=== PATIENT | male | born 1990 | race Caucasian/White ===

== ENCOUNTER 2017-12-15 11:15 | Emergency (ER) | payer BC, OTHER ==
[2017-12-15 11:46] VITALS: BP 119/74; PULSE 73; TEMP 98.9; BMI 33.4
[2017-12-15] MEDS ORDERED: DIPHTH,PERTUSS(ACELL),TET 0.5 ML DISP.SYRIN IM ONE (12:39)
--- NOTE | 2017-12-15 12:44 | PDOC ---
History of Present Illness - General Chief Complaint: Laceration Stated Complaint: LACERATION Time Seen by Provider: 12/15/17 12:04 - History of Present Illness Initial Comments: 27-year-old male presents for evaluation of a laceration on his left forearm. He states he tripped and fell and cut his forearm on a fish tank. He is unsure of his tetanus status. He has no comorbidities. 12/15/17 12:40 Past History - Past Medical History Allergies/Adverse Reactions: Allergies Allergy/AdvReac Type Severity Reaction Status Date / Time No Known Allergies Allergy Verified 12/15/17 11:44 Home Medications: Ambulatory Orders NK [No Known Home Medication] 12/15/17 COPD: No - Surgical History Cardiac Surgery: Yes (ablation s/p wpws) - Immunization History Immunization Up to Date: Yes - Suicide/Smoking/Psychosocial Hx Smoking History: Never smoked Have you smoked in the past 12 months: No Hx Alcohol Use: No Drug/Substance Use Hx: No Substance Use Type: None *Physical Exam - Vital Signs Last Vital Signs Temp Pulse Resp BP Pulse Ox 98.9 F 73 18 119/74 99 12/15/17 11:44 12/15/17 11:44 12/15/17 11:44 12/15/17 11:44 12/15/17 11:44 - Physical Exam Comments: There is a V shaped laceration on the volar aspect of his distal forearm on the radial side. Exposing subcutaneous fat. The laceration is about 3 cm total. There are no gross sensorimotor deficits tendon function is intact distally. He is neurovascularly intact. 12/15/17 12:40 ED Treatment Course - RADIOLOGY Radiology Studies Ordered: Category Date Time Status WRIST W/HAND-RIGHT* [RAD] Stat Radiology 12/15/17 12:07 Taken Medical Decision Making - Medical Decision Making X-rays were reviewed. There are no radial opaque foreign bodies. The laceration was anesthetized with 8 mL of 1% lidocaine without epinephrine. The wound was explored to its base in a bloodless field. No foreign body was identified. Copiously irrigated. The laceration edges were approximated with 6 4 -0 nylon sutures in a simple interrupted fashion. A dry sterile dressing was placed. This was tolerated well. 12/15/17 12:41 *DC/Admit/Observation/Transfer Diagnosis at time of Disposition: Laceration of forearm, right - Discharge Dispostion Disposition: HOME Condition at time of disposition: Stable Decision to Admit order: No - Referrals Referrals: Davy Santo MD [Staff Physician] - - Patient Instructions Printed Discharge Instructions: DI for Laceration Repair Additional Instructions: Keep the dressing on for the next 48 hours. After which you may remove the dressing and wash the area with soap and water and leave it open to air. You only need to cover the dressing if you are working. Otherwise leave it open to air. Return to the emergency room should you experience any drainage swelling redness or pain about the area. Otherwise he may return to the emergency room in 10 days for suture removal or follow-up with hand surgery for further evaluation and treatment options as well as suture removal. He should follow-up with hand surgery in 1-2 days for wound management. Your tetanus was updated today as well. - Post Discharge Activity
== END 2017-12-15 12:48 | disposition home or self-care (01) ==
LOC: JERFT 11:15
PROC: 0HQDXZZ Repair Right Lower Arm Skin, External Approach (ICD-10-PCS; principal; 2017-12-15)
DX: S51.812A Laceration without foreign body of left forearm, initial encounter (principal); W45.8XXA Other foreign body or object entering through skin, initial encounter; Y93.89 Activity, other specified; Y92.89 Other specified places as the place of occurrence of the external cause
CPT/HCPCS: 73110-TC-RT-FY; 73130-TC-RT-FY; 90715; 99282-25

== ENCOUNTER 2019-02-10 22:45 | Inpatient (IN) | payer OTHER ==
--- NOTE | 2019-02-10 22:58 | PDOC ---
History of Present Illness - General Chief Complaint: Hemoptysis Stated Complaint: HEMOPTYSIS Time Seen by Provider: 02/10/19 22:58 Past History - Past Medical History Allergies/Adverse Reactions: Allergies Allergy/AdvReac Type Severity Reaction Status Date / Time No Known Allergies Allergy Verified 02/10/19 22:50 Home Medications: Ambulatory Orders NK [No Known Home Medication] 12/15/17 COPD: No - Surgical History Cardiac Surgery: Yes (ablation s/p wpws) - Immunization History Immunization Up to Date: Yes - Psycho Social/Smoking Cessation Hx Smoking History: Never smoked Have you smoked in the past 12 months: No Hx Alcohol Use: No Drug/Substance Use Hx: No Substance Use Type: None *Physical Exam - Vital Signs Last Vital Signs Temp Pulse Resp BP Pulse Ox 98.1 F 80 18 133/87 96 02/10/19 22:48 02/10/19 22:48 02/10/19 22:48 02/10/19 22:48 02/10/19 22:48
--- NOTE | 2019-02-10 23:51 | PDOC ---
History of Present Illness - General Chief Complaint: Hemoptysis Stated Complaint: HEMOPTYSIS Time Seen by Provider: 02/10/19 22:58 - History of Present Illness Initial Comments: 02/10/19 23:43 HPI: 28 y/o M with hx of PFO s/p indomethacin as a child presenting with hemoptysis that started today. He states he woke up this morning with a scratchy throat and when he coughed to clear the phlegm, he noted that it was largely bright red blood. He denies any prior episodes. He stated continued hemoptysis throughout the day and now feeling wheezing. He denies any fever, chills, chest pain, SOB, fatigue, malaise, abd pain, n/v, travel, sick contacts, [facility] contact, [facility] living. Of note, he does report having 2 wisdom teeth pulled out 5 days ago and has been taking amoxicillin and tylenol 3, but he tolerated procedure well. PMHx: as noted above ROS: as noted SHx: Denies tobacco use; no alcohol use; no rec drugs Allergies: NKDA ROS: GENERAL/CONSTITUTIONAL: No fever or chills. No weakness. HEAD, EYES, EARS, NOSE AND THROAT: No change in vision. No ear pain or discharge. +sore throat. CARDIOVASCULAR: No chest pain or shortness of breath RESPIRATORY: +wheezing and hemoptysis. GASTROINTESTINAL: No nausea, vomiting, diarrhea or constipation. GENITOURINARY: No dysuria, frequency, or change in urination. MUSCULOSKELETAL: No joint or muscle swelling or pain. No neck or back pain. SKIN: No rash NEUROLOGIC: No headache, vertigo, loss of consciousness, or change in strength/ sensation. ENDOCRINE: No increased thirst. No abnormal weight change HEMATOLOGIC/LYMPHATIC: No anemia, easy bleeding, or history of blood clots. ALLERGIC/IMMUNOLOGIC: No hives or skin allergy. PE: GENERAL: Awake, alert, and fully oriented, no acute distress HEAD: No signs of trauma, normocephalic, atraumatic EYES: EOMI, sclera anicteric, conjunctiva clear ENT: Auricles normal inspection, hearing grossly normal, nares patent, oropharynx clear without exudates or blood. Moist mucosa NECK: Normal ROM, no lymphadenopathy LUNGS: No increased work of breathing, symmetrical chest rise, inspiratory wheezing noted throughout all lung wolff BL HEART: Regular rate and rhythm, normal S1 and S2, no murmurs, peripheral pulses 2+ and equal bilaterally. ABDOMEN: Soft, nondistended, nontender, normoactive bowel sounds. No guarding, no rebound. No masses. No CVAT EXTREMITIES: Normal inspection, Normal range of motion, no edema. No clubbing or cyanosis. NEUROLOGICAL: Cranial nerves II through XII grossly intact. Normal speech, normal gait, no focal sensorimotor deficits SKIN: Warm, Dry, normal turgor, no rashes or lesions noted Past History - Past Medical History Allergies/Adverse Reactions: Allergies Allergy/AdvReac Type Severity Reaction Status Date / Time No Known Allergies Allergy Verified 02/10/19 22:50 Home Medications: Ambulatory Orders Acetaminophen W/ Codeine #3 [Tylenol # 3 -] 1 - 2 tab PO Q6H PRN 02/10/19 Amoxicillin - [Amoxicillin 500mg Capsule -] 500 mg PO Q8H 02/10/19 COPD: No - Surgical History Cardiac Surgery: Yes (ablation s/p wpws) - Immunization History Immunization Up to Date: Yes - Psycho Social/Smoking Cessation Hx Smoking History: Never smoked Have you smoked in the past 12 months: No Hx Alcohol Use: No Drug/Substance Use Hx: No Substance Use Type: None *Physical Exam - Vital Signs Last Vital Signs Temp Pulse Resp BP Pulse Ox 98.1 F 80 18 133/87 96 02/10/19 22:48 02/10/19 22:48 02/10/19 22:48 02/10/19 22:48 02/10/19 22:48 ED Treatment Course - RADIOLOGY Radiology Studies Ordered: Category Date Time Status CHEST PA & LAT [RAD] Stat Radiology 02/10/19 23:29 Ordered Medical Decision Making - Medical Decision Making 02/10/19 23:51 28 y/o M with hx of PFO s/p indomethacin as a child presenting with hemoptysis ( bright red blood) that started today associated with sore throat and wheezing. VSS, AF. PE notable for wheezing throughout all lung wolff. Broad differential including PNA, bronchitis, AVM, tracheal injury, malignancy, TB. Patient has no risk factors for TB. Will proceed with workup -cbc, cmp, coags, trop, bnp, ekg, cxr 02/10/19 23:54 signed out to night team to followup imaging and labs Discharge - Discharge Information Problems reviewed: Yes Clinical Impression/Diagnosis: Hemoptysis, unspecified - Follow up/Referral - Patient Discharge Instructions - Post Discharge Activity
[2019-02-11] MEDS ORDERED: ALBUTEROL SO4 2.5/IPRATROPIUM 0.5 INH SOL 3 ML VIAL.NEB. NEB ONE ×2 (00:01→00:27)
--- NOTE | 2019-02-11 00:07 | PDOC ---
*Physical Exam - Vital Signs Last Vital Signs Temp Pulse Resp BP Pulse Ox 98.1 F 80 18 133/87 96 02/10/19 22:48 02/10/19 22:48 02/10/19 22:48 02/10/19 22:48 02/10/19 22:48 ED Treatment Course - LABORATORY CBC & Chemistry Diagram: 02/11/19 00:14 02/11/19 00:14 Medical Decision Making - Medical Decision Making 02/11/19 00:01 28 y/o M no significant medical hx presenting with hemoptysis no fevers, chills or p.e risk factors. no TB risk factors (recent travel) follow up on labs and ekg 02/11/19 00:02 02/11/19 00:11 EKG: normal sinus rhythm normal EKG 02/11/19 01:31 d-dimer elevated at 690 wheezing improved after duoneb treatment x1 -CTA ordered. 02/11/19 04:06 Chest CTA Moderate left lower lobe lung consolidation most likely due to pneumonia or aspiration pneumonia or consolidation from hemorrhage. If clinically indicated follow-up evaluation may be needed. Opacification of the left lower lobe bronchi may be due to aspirated debris or mucus. Left infrahilar borderline nonspecific lymphadenopathy may be reactive to infection. microblog sent for admission 02/11/19 04:08 Discharge - Discharge Information Problems reviewed: Yes Clinical Impression/Diagnosis: Hemoptysis, unspecified Condition: Improved Disposition: HOME - Follow up/Referral - Patient Discharge Instructions - Post Discharge Activity
--- NOTE | 2019-02-11 00:15 | PDOC ---
Documentation entered by Vinicio Kim SCRIBE, acting as scribe for Charlette Delong MD. Charlette Delong MD: This documentation has been prepared by the Judy cedeño Nirvannie, SCRIBE, under my direction and personally reviewed by me in its entirety. I confirm that the documentation accurately reflects all work, treatment, procedures, and medical decision making performed by me. Attending Attestation - Resident Resident Name: BrendenArian macario - ED Attending Attestation I have performed the following: I have examined & evaluated the patient, The case was reviewed & discussed with the resident, I agree w/resident's findings & plan - HPI HPI: 02/11/19 00:14 28 y/o M with hx of PFO s/p indomethacin as a child presenting with hemoptysis that started today. He states he woke up this morning with a scratchy throat and when he coughed to clear the phlegm, he noted that it was largely bright red blood. He denies any prior episodes. He stated continued hemoptysis throughout the day and now feeling wheezing. He denies any fever, chills, chest pain, SOB, fatigue, malaise, abd pain, n/v, travel, sick contacts, residential contact, skilled nursing living. Of note, he does report having 2 wisdom teeth pulled out 5 days ago and has been taking amoxicillin and tylenol 3, but he tolerated procedure well. - Physicial Exam PE: 02/10/19 23:02 NAD, well appearing, EOMI, PERRL, MMM, nl conjunctiva, anicteric; neck supple. lungs with wheezing, RRR, abdomen soft nontender. Back nontender. ENRIQUEZ x4, no focal neuro deficits. No peripheral edema. normal color for ethnicity, WWP. 02/11/19 01:03 - Medical Decision Making 02/11/19 00:14 Vital Signs Temp Pulse Resp BP Pulse Ox 98.1 F 80 18 133/87 96 02/10/19 22:48 02/10/19 22:48 02/10/19 22:48 02/10/19 22:48 02/10/19 22:48 02/11/19 00:14 ddx includes pna, mass, malignancy, obstruction, PE, arrhythmia, viral syndrome , bronchitis, bronchiectasis. labs, unremarkable. dimer, well score 1.5 for hemoptysis, cannot perc out with the hemoptysis. trop/bnp ekg sinus rhythm duoneb for wheezing. dimer positive for patient at 690 will need CTA to eval for PE. 02/11/19 01:03 02/11/19 01:30 Heart Score/ECG Review #1 ECG reviewed & interpreted by me at: 00:05 General ECG Interpretation: Sinus Rhythm, Normal Rate, Normal Intervals 02/11/19 00:14 nsr at 86 bpm
[2019-02-11 00:31] LABS: BASO % 0.5 % (0-2.0); EOS % 2.3 % (0-4.5); HEMATOCRIT 40.1 % (35.4-49); HEMOGLOBIN 13.8 GM/dL (11.7-16.9); LYMPH % 38.3 % (8-40); MCH 30.6 pg (25.7-33.7); MCHC 34.4 g/dl (32.0-35.9); MEAN CELL VOLUME 88.8 fl (80-96); MEAN PLT VOLUME 8.9 fl (7.5-11.1); MONO % 7.6 % (3.8-10.2); NEUT % 51.3 % (42.8-82.8); PLATELET COUNT 181 K/MM3 (134-434); RBC 4.52 M/mm3 (4.00-5.60); RDW 13.3 % (11.9-15.9); WHITE BLOOD COUNT 8.2 K/mm3 (4.0-10.0)
[2019-02-11 00:43] LABS: INR 1.08 (0.83-1.09); PROTHROMBIN TIME (PATIENT) 12.7 SEC (9.7-13.0)
[2019-02-11 00:46] LABS: ACTIVATED PTT 35.8 SECONDS (25.2-36.5)
[2019-02-11 01:00] LABS: ALBUMIN 3.7 g/dl (3.4-5.0); BILIRUBIN,TOTAL 0.4 mg/dL (0.2-1); CREATININE 0.7 mg/dL (0.55-1.3); TOT PROT 7.4 g/dl (6.4-8.2)
[2019-02-11 01:02] LABS: N-TERMINAL BNP 12.9 pg/ml (5-125)
[2019-02-11] MEDS ORDERED: AMPICILLIN NA/SULBACTAM NA 1.5 GM in SODIUM CHLORIDE 100 ML IVPB ONE (03:52)
--- NOTE | 2019-02-11 04:08 | PDOC ---
*Physical Exam - Vital Signs Last Vital Signs Temp Pulse Resp BP Pulse Ox 98.1 F 80 18 133/87 96 02/10/19 22:48 02/10/19 22:48 02/10/19 22:48 02/10/19 22:48 02/10/19 22:48 ED Treatment Course - LABORATORY CBC & Chemistry Diagram: 02/11/19 00:14 02/11/19 00:14 - ADDITIONAL ORDERS Additional order review: Laboratory Results 02/11/19 02/11/19 02/11/19 00:14 00:14 00:14 PT with INR 12.70 INR 1.08 PTT (Actin FS) 35.8 D-Dimer 690 H Sodium Potassium Chloride Carbon Dioxide Anion Gap BUN Creatinine Est GFR (CKD-EPI)AfAm Est GFR (CKD-EPI)NonAf Random Glucose Calcium Total Bilirubin AST ALT Alkaline Phosphatase Troponin I < 0.02 B-Natriuretic Peptide 12.9 Total Protein Albumin 02/11/19 00:14 PT with INR INR PTT (Actin FS) D-Dimer Sodium 140 Potassium 4.0 Chloride 108 H Carbon Dioxide 29 Anion Gap 4 L BUN 11.0 Creatinine 0.7 Est GFR (CKD-EPI)AfAm 146.77 Est GFR (CKD-EPI)NonAf 126.64 Random Glucose 101 Calcium 9.0 Total Bilirubin 0.4 AST 26 ALT 62 H Alkaline Phosphatase 116 Troponin I B-Natriuretic Peptide Total Protein 7.4 Albumin 3.7 02/11/19 00:14 RBC 4.52 MCV 88.8 MCHC 34.4 RDW 13.3 MPV 8.9 Neutrophils % 51.3 Lymphocytes % 38.3 D Monocytes % 7.6 Eosinophils % 2.3 Basophils % 0.5 - Medications Given in the ED: ED Medications Discontinued Medications Generic Name Dose Route Start Last Admin Trade Name Freq PRN Reason Stop Dose Admin Albuterol/Ipratropium 1 amp 02/11/19 00:01 02/11/19 00:31 Duoneb - NEB 02/11/19 00:02 1 amp ONCE ONE Administration Medical Decision Making - Medical Decision Making Pt received on signout. 02/11/19 04:06 Patient Name: GAGE HERNANDEZ THIS IS A PRELIMINARY REPORT FROM [facility] DATE OF SERVICE: 2019-02-11 02:11:17 IMAGES: 1142 EXAM: CT ANGIOGRAM CHEST WITH CONTRAST AND 3-D ANGIOGRAPHIC RECONSTRUCTIONS HISTORY: 28-Year-Old Male With Hemoptysis. COMPARISON: None. TECHNIQUE: Following 70.7 mL Omnipaque 350 IV contrast administration thin axial images were obtained through the chest for pulmonary artery evaluation by pulmonary embolism protocol with images transmitted to a remote workstation for 3-D post-processing included coronal and sagittal reformatted 3-D MIP images which were permanently stored in the patient medical record PACS. FINDINGS: Moderate left lower lobe lung consolidation most likely due to pneumonia or aspiration pneumonia or consolidation from hemorrhage. Opacification of the left lower lobe bronchi may be due to aspirated debris or mucus. Left infrahilar borderline nonspecific lymphadenopathy may be reactive to infection. Mild basilar atelectasis. No pleural effusion. No pneumothorax. Heart appears unremarkable. No large central pulmonary embolism. Evaluation of the distal segmental branches is limited by artifact. Limited evaluation upper abdomen appears unremarkable. Bones appear unremarkable. IMPRESSION: Moderate left lower lobe lung consolidation most likely due to pneumonia or aspiration pneumonia or consolidation from hemorrhage. If clinically indicated follow-up evaluation may be needed. Opacification of the left lower lobe bronchi may be due to aspirated debris or mucus. Left infrahilar borderline nonspecific lymphadenopathy may be reactive to infection. Pt will be admitted; but he is refusing to stay, as he wants to fix things at home and return later. We will make him sign AMA in that case, as he is not stable to go at this time 02/11/19 19:52 02/11/19 19:53 Pt agreeing to stay in the hospital. Admitting team is aware of him Discharge - Discharge Information Problems reviewed: Yes Clinical Impression/Diagnosis: Hemoptysis, unspecified Condition: Improved Disposition: HOME - Follow up/Referral - Patient Discharge Instructions - Post Discharge Activity
--- NOTE | 2019-02-11 04:23 | PN ---
Teaching Attending Note Name of Resident: Thony Mae ATTENDING PHYSICIAN STATEMENT I saw and evaluated the patient. I reviewed the resident's note and discussed the case with the resident. I agree with the resident's findings and plan as documented. SUBJECTIVE: Patient is a 28 year old man with PMH of Patent foramen ovale (s/p indomethacin as a child) and Cardiac ablation for WPWS presenting with hemoptysis that started today. He states he woke up this morning with a scratchy throat and when he coughed to clear the phlegm, he noted that it was largely bright red blood. He denies any prior episodes. He stated continued hemoptysis throughout the day and now has wheezing. He denies any fever, chills, chest pain, SOB, fatigue, malaise, abdominal pain, nausea or vomiting. He denies recent travel, sick contacts, skilled nursing contact or [facility] living. He had uncomplicated extraction of 2 wisdom teeth 5 days ago and has been taking Amoxicillin and Tylenol 3. Denies tobacco, alcohol or illicit drug use. OBJECTIVE: Alert Vital Signs Period Temp Pulse Resp BP Sys/Avila Pulse Ox Last 24 Hr 98.1 F 80 18 133/87 96 HEENT: No Jaundice, eye redness or discharge, PERRLA, EOMI. Normocephalic, atraumatic. External ears are normal and hearing is grossly intact. No nasal discharge. Neck: Supple, nontender. No palpable adenopathy or thyromegaly. No JVD Chest: Good effort. Clear to auscultation and percussion. Heart: Regular. No S3, rub or murmur Abdomen: Not distended, soft, nontender and no HSM. No rebound or guarding. Normal bowel sounds. Ext: Peripheral pulses intact. No leg edema. Skin: Warm and dry. No petechiae, rash or ecchymosis. Neuro: Alert. Oriented x3. CN 2-12 grossly intact. Sensation grossly intact in all four extremities and DTR are symmetric. Psych: Appropriate mood and affect. Good insight. Home Medications Medication Instructions Recorded Acetaminophen W/ Codeine #3 1 - 2 tab PO Q6H PRN 02/10/19 [Tylenol # 3 -] Amoxicillin - [Amoxicillin 500mg 500 mg PO Q8H 02/10/19 Capsule -] Abnormal Lab Results 02/11/19 02/11/19 00:14 00:14 D-Dimer 690 H Chloride 108 H Anion Gap 4 L ALT 62 H ASSESSMENT AND PLAN: 1. Hemoptysis/?Aspiration pneumonia - CXR shows cardiomegaly, RLL fluffy infiltrates and LLL consolidation/atelectasis. CTA chest shows LLL consolidation , opacification of the left lower lobe bronchi attributed to possible aspirated debris or mucus; left infrahilar borderline nonspecific lymphadenopathy, but no pulmonary embolism. Discordant CXR and Chest CTA findings need Pulmonary consultation for clarification. Need to rule our ?foreign body in bronchus. EKG shows NSR with no significant ST-T wave changes. Urinalysis is pending. Get ECHO. Continue IV Unasyn 1.5 gm q 6 hours for now and monitor HCT q 6 hours. Will continue comprehensive care for all of patients comorbid conditions. 2. Obesity Counseled on the risks associated with obesity. Will provide patient all the necessary assistance, counseling and positive reinforcement to facilitate weight loss. Consult cardiology clinical consultant. 3. DVT prophylaxis - SCD 4. Advance directives - Full code
--- NOTE | 2019-02-11 05:41 | HP ---
CHIEF COMPLAINT: blood in sputum PCP: HISTORY OF PRESENT ILLNESS: 28 y/o M, pmh of a patent foramen ovale s/p repair, presents today with coughing up of blood of 1 day duration that began yesterday afternoon and persisted throughout the day. Pt reports that he has been coughing up blood and productive phlegm every few hours and the last time he coughed up blood was in the ED. He doesn't recall choking on food or any other types of foreign bodies. He reports no previous hx of similar symptoms. 2 days ago, he underwent a dental procedure to remove his wisdom tooth and was sent home on amoxicillin. He was recovering well when his symptoms spontaneously began. Pt denies f/c/n/v/ d/sob/chest pain/ abdominal pain, weight loss, night sweats, recent travels. ER course was notable for: (1)Pt started on unasyn (2)CT chest: moderate LLL consolidation, opacification of LLL bronchi, Left infrahilar borderline nonspecific LAD (3)CXR- right lung infiltrates and LLL possible atelectasis as per my read Recent Travel: denies PAST MEDICAL HISTORY: PFO, no other medical hx PAST SURGICAL HISTORY: PFO repair Social History: Smoking: denies Alcohol: denies Drugs: denies Allergies No Known Allergies Allergy (Verified 02/10/19 22:50) HOME MEDICATIONS: Home Medications Medication Instructions Recorded Acetaminophen W/ Codeine #3 1 - 2 tab PO Q6H PRN 02/10/19 [Tylenol # 3 -] Amoxicillin - [Amoxicillin 500mg 500 mg PO Q8H 02/10/19 Capsule -] REVIEW OF SYSTEMS CONSTITUTIONAL: Absent: fever, chills, diaphoresis, generalized weakness HEENT: Absent: rhinorrhea, nasal congestion, visual changes CARDIOVASCULAR: Absent: chest pain, syncope, palpitations, peripheral edema RESPIRATORY: Admits: hemoptysis Absent: cough, shortness of breath, dyspnea with exertion GASTROINTESTINAL: Absent: abdominal pain, abdominal distension, nausea, vomiting, diarrhea, SKIN: Absent: rash, itching, pallor HEMATOLOGIC/IMMUNOLOGIC: Absent: easy bleeding, ENDOCRINE: Absent: unexplained weight gain, unexplained weight loss NEUROLOGIC: Absent: headache, focal weakness or paresthesias, dizziness, PSYCHIATRIC: Absent: anxiety, depression, PHYSICAL EXAMINATION Vital Signs - 24 hr 02/10/19 02/11/19 22:48 04:30 Temperature 98.1 F Pulse Rate 80 Respiratory 18 Rate Blood Pressure 133/87 O2 Sat by Pulse 96 96 Oximetry (%) GENERAL: Awake, alert, and fully oriented, in no acute distress. Appears overall healthy EYES: Pupils equal, round and reactive to light, extraocular movements intact EARS, NOSE, THROAT: oropharynx clear without exudates. Moist mucous membranes. NECK: supple without lymphadenopathy, JVD, or masses. LUNGS: Breath sounds equal, clear to auscultation bilaterally. No wheezes, and no crackles. HEART: Regular rate and rhythm, normal S1 and S2 without murmur, rub or gallop. ABDOMEN: Soft, nontender, not distended, normoactive bowel sounds, no guarding, no rebound, no masses. MUSCULOSKELETAL: No CVA tenderness. UPPER EXTREMITIES: 2+ pulses, warm, well-perfused. No peripheral edema. LOWER EXTREMITIES: 2+ pulses, warm, well-perfused. No peripheral edema. PSYCHIATRIC: Cooperative. Good eye contact. SKIN: Warm, dry, normal turgor, Laboratory Results - last 24 hr CBC,CMP WBC 8.2 K/mm3 (4.0-10.0) 02/11/19 00:14 RBC 4.52 M/mm3 (4.00-5.60) 02/11/19 00:14 Hgb 13.8 GM/dL (11.7-16.9) 02/11/19 00:14 Hct 40.1 % (35.4-49) 02/11/19 00:14 MCV 88.8 fl (80-96) 02/11/19 00:14 MCH 30.6 pg (25.7-33.7) 02/11/19 00:14 MCHC 34.4 g/dl (32.0-35.9) 02/11/19 00:14 RDW 13.3 % (11.9-15.9) 02/11/19 00:14 Plt Count 181 K/MM3 (134-434) 02/11/19 00:14 MPV 8.9 fl (7.5-11.1) 02/11/19 00:14 Absolute Neuts (auto) 4.2 K/mm3 (1.5-8.0) 02/11/19 00:14 Neutrophils % 51.3 % (42.8-82.8) 02/11/19 00:14 Lymphocytes % 38.3 % (8-40) D 11 00:14 Monocytes % 7.6 % (3.8-10.2) 02/11/19 00:14 Eosinophils % 2.3 % (0-4.5) 02/11/19 00:14 Basophils % 0.5 % (0-2.0) 02/11/19 00:14 Nucleated RBC % 0 % (0-0) 02/11/19 00:14 Sodium 140 mmol/L (136-145) 02/11/19 00:14 Potassium 4.0 mmol/L (3.5-5.1) 02/11/19 00:14 Chloride 108 mmol/L (98-107) H 02/11/19 00:14 Carbon Dioxide 29 mmol/L (21-32) 02/11/19 00:14 Anion Gap 4 MMOL/L (8-16) L 02/11/19 00:14 BUN 11.0 mg/dL (7-18) 02/11/19 00:14 Creatinine 0.7 mg/dL (0.55-1.3) 02/11/19 00:14 Est GFR (CKD-EPI)AfAm 146.77 02/11/19 00:14 Est GFR (CKD-EPI)NonAf 126.64 02/11/19 00:14 Random Glucose 101 mg/dL (74-106) 02/11/19 00:14 Calcium 9.0 mg/dL (8.5-10.1) 02/11/19 00:14 Total Bilirubin 0.4 mg/dL (0.2-1) 02/11/19 00:14 AST 26 U/L (15-37) 02/11/19 00:14 ALT 62 U/L (13-61) H 02/11/19 00:14 Alkaline Phosphatase 116 U/L (45-117) 02/11/19 00:14 Troponin I < 0.02 ng/ml (0.00-0.05) 02/11/19 00:14 B-Natriuretic Peptide 12.9 pg/ml (5-125) 02/11/19 00:14 Total Protein 7.4 g/dl (6.4-8.2) 02/11/19 00:14 Albumin 3.7 g/dl (3.4-5.0) 02/11/19 00:14 ASSESSMENT/PLAN: 28 y/o M, pmh of a patent foramen ovale s/p repair, presents today with coughing up of blood of 1 day duration is admitted for pneumonia 2/2 to aspiration #Hemoptysis 2/2 to aspiration pneumonia Pt clinically stable, asymptomatic Coughing has resolved as per pt CTA shows LLL consolidation, opacification of the left lower lobe bronchi attributed to possible aspirated debris or mucus; left infrahilar borderline nonspecific LAD, but no PE Trops neg x1 EKG: NSR Cont Unasyn 1.5 gm q6 Pulmonary consulted- Dr. Krueger Need to r/o foreign body in bronchus #Hx of PFO ECHO for am #DVT ppx Lovenox 40 sq FEN: Regular diet, no need for fluids, monitor lytes in am Dispo: f/u with Pulmonary in am, consider r/p imaging in am Visit type - Emergency Visit Emergency Visit: Yes ED Registration Date: 02/11/19 Care time: The patient presented to the Emergency Department on the above date and was hospitalized for further evaluation of their emergent condition. - New Patient This patient is new to me today: Yes Date on this admission: 02/11/19 - Critical Care Critical Care patient: No ATTENDING PHYSICIAN STATEMENT I saw and evaluated the patient. I reviewed the resident's note and discussed the case with the resident. I agree with the resident's findings and plan as documented. SUBJECTIVE: OBJECTIVE: ASSESSMENT AND PLAN:
[2019-02-11 08:10] VITALS: BMI 34.3
[2019-02-11] MEDS ORDERED: SODIUM CHLORIDE 100 ML IVPB ONE (08:48)
[2019-02-11] MEDS ORDERED: AMPICILLIN NA/SULBACTAM NA 1.5 GM VIAL ONE (08:48)
[2019-02-11] MEDS ORDERED: AMPICILLIN NA/SULBACTAM NA 1.5 GM in SODIUM CHLORIDE 100 ML IVPB SCH ×2 (09:00→10:00)
--- NOTE | 2019-02-11 09:13 | PN ---
Physical Exam: SUBJECTIVE: Patient seen and examined. He has no complaints. He denies cough, SOB. OBJECTIVE: Vital Signs Period Temp Pulse Resp BP Sys/Avila Pulse Ox Last 24 Hr 97.8 F-98.8 F 80-89 18-20 116-133/74-87 96-98 GENERAL: The patient is awake, alert, and fully oriented, in no acute distress. LUNGS: Breath sounds equal, clear to auscultation bilaterally, no wheezes, no crackles, no accessory muscle use. HEART: Regular rate and rhythm, S1, S2 without murmur, rub or gallop. ABDOMEN: Obese, soft, nontender, nondistended, normoactive bowel sounds, no guarding, no rebound, no hepatosplenomegaly, no masses. EXTREMITIES: 2+ pulses, warm, well-perfused, no edema. Laboratory Results - last 24 hr 02/11/19 02/11/19 02/11/19 00:14 00:14 00:14 WBC 8.2 RBC 4.52 Hgb 13.8 Hct 40.1 MCV 88.8 MCH 30.6 MCHC 34.4 RDW 13.3 Plt Count 181 MPV 8.9 Absolute Neuts (auto) 4.2 Neutrophils % 51.3 Lymphocytes % 38.3 D Monocytes % 7.6 Eosinophils % 2.3 Basophils % 0.5 Nucleated RBC % 0 PT with INR INR PTT (Actin FS) D-Dimer Sodium 140 Potassium 4.0 Chloride 108 H Carbon Dioxide 29 Anion Gap 4 L BUN 11.0 Creatinine 0.7 Est GFR (CKD-EPI)AfAm 146.77 Est GFR (CKD-EPI)NonAf 126.64 Random Glucose 101 Calcium 9.0 Total Bilirubin 0.4 AST 26 ALT 62 H Alkaline Phosphatase 116 Troponin I < 0.02 B-Natriuretic Peptide 12.9 Total Protein 7.4 Albumin 3.7 02/11/19 02/11/19 00:14 00:14 WBC RBC Hgb Hct MCV MCH MCHC RDW Plt Count MPV Absolute Neuts (auto) Neutrophils % Lymphocytes % Monocytes % Eosinophils % Basophils % Nucleated RBC % PT with INR 12.70 INR 1.08 PTT (Actin FS) 35.8 D-Dimer 690 H Sodium Potassium Chloride Carbon Dioxide Anion Gap BUN Creatinine Est GFR (CKD-EPI)AfAm Est GFR (CKD-EPI)NonAf Random Glucose Calcium Total Bilirubin AST ALT Alkaline Phosphatase Troponin I B-Natriuretic Peptide Total Protein Albumin Active Medications Generic Name Dose Route Start Last Admin Trade Name Mauricioq PRN Reason Stop Dose Admin Enoxaparin Sodium 40 mg 02/11/19 10:00 02/11/19 09:07 Lovenox - SQ 40 mg DAILY NICK Administration Ampicillin Sodium/Sulbactam 100 mls @ 200 mls/hr 02/11/19 09:00 02/11/19 09: 06 Sodium 1.5 gm/ Sodium Chloride IVPB 200 mls/hr Q6H-IV NICK Administration ASSESSMENT/PLAN: This is a 28 year old man with a history of PFO, ablation for WPW who presented to the ED with hemoptysis. 1. Hemoptysis - Possibly secondary to pneumonia - On Unasyn - CTA shows pulmonary sequestration LLL with vascular supply from branch of descending thoracic aorta - Pulmonary consult 2. History of PFO - Treated with indomethacin 3. History of WPW, ablation 4. Obesity with BMI 34.3
[2019-02-11] MEDS ORDERED: ENOXAPARIN NA (PORCINE) 40 MG/0.4 ML DISP.SYRIN SQ SCH (10:00)
--- NOTE | 2019-02-11 11:17 | CON.PULM ---
Consult Consult Specialty:: PULMONARY Referred by:: Dr Frazier Reason for Consultation:: hemoptysis - History of Present Illness Chief Complaint: hemoptysis History of Present Illness: 28yo male with h/o PFO, recent wisdom teeth extraction who was admitted with hemopytsis x 1 day. Reports mix of bright red and dark blood. No sputum. No shortness of breath or chest pain. No fevers, chills or sweats. Has never happened to him before. CT chest showing LLL consolidation. He states hemoptysis has resolved since the CT chest. - History Source History Provided By: Patient, Medical Record Limitations to Obtaining History: No Limitations - Alcohol/Substance Use Hx Alcohol Use: No - Smoking History Smoking history: Never smoked Have you smoked in the past 12 months: No Home Medications - Allergies Allergies/Adverse Reactions: Allergies Allergy/AdvReac Type Severity Reaction Status Date / Time No Known Allergies Allergy Verified 02/10/19 22:50 - Home Medications Home Medications: Ambulatory Orders Acetaminophen W/ Codeine #3 [Tylenol # 3 -] 1 - 2 tab PO Q6H PRN 02/10/19 Amoxicillin - [Amoxicillin 500mg Capsule -] 500 mg PO Q8H 02/10/19 Review of Systems - Review of Systems Constitutional: denies: Chills, Fever, Weakness Eyes: denies: Recent Change in Vision HENT: denies: Nasal Congestion, Throat Pain Neck: denies: Stiffness, Tenderness Cardiovascular: denies: Chest Pain, Shortness of Breath Respiratory: reports: Cough, Hemoptysis. denies: SOB on Exertion, Wheezing Gastrointestinal: denies: Abdominal Pain, Nausea, Vomiting Genitourinary: denies: Dysuria, Hematuria Neurological: denies: Dizziness, Headache Endocrine: denies: Unexplained Weight Loss Physical Exam Vital Sings: Vital Signs Temperature 98.8 F 02/11/19 05:40 Pulse Rate 89 02/11/19 05:40 Respiratory Rate 18 02/11/19 05:40 Blood Pressure 123/79 02/11/19 05:40 O2 Sat by Pulse Oximetry (%) 96 02/11/19 05:40 Constitutional: Yes: No Distress, Calm Eyes: Yes: Conjunctiva Clear, EOM Intact HENT: Yes: Atraumatic, Normocephalic Neck: Yes: Supple, Trachea Midline Cardiovascular: Yes: Regular Rate and Rhythm Respiratory: Yes: Rales (left base) ...Clubbing: No Gastrointestinal: Yes: Normal Bowel Sounds, Soft. No: Tenderness Edema: No Neurological: Yes: Alert, Oriented Labs: CBC, BMP 02/11/19 00:14 02/11/19 00:14 Imaging - Results Chest X-ray: Report Reviewed, Image Reviewed Cat Scan: Report Reviewed, Image Reviewed (LLL consolidation) Problem List - Problems (1) Hemoptysis, unspecified Code(s): R04.2 - HEMOPTYSIS Assessment/Plan Hemoptysis r/o Pneumonia Recent Teeth Extraction h/o PFO - agree with antibiotics, can likely change to PO for total 7 days - monitor/quantify hemoptysis - will need outpt f/u of chest imaging in 6-8 weeks to ensure resolution - DVT prophylaxis - can discharge home on PO antibiotics from pulmonary standpoint Thank you for this consult Mg Christine MD
--- NOTE | 2019-02-11 12:22 | DS ---
Physical Exam: SUBJECTIVE: Patient seen and examined. He has no complaints. He denies cough, SOB. OBJECTIVE: Vital Signs Period Temp Pulse Resp BP Sys/Avila Pulse Ox Last 24 Hr 97.8 F-98.8 F 80-89 18-20 116-133/74-87 96-98 PHYSICAL EXAM GENERAL: The patient is awake, alert, and fully oriented, in no acute distress. LUNGS: Breath sounds equal, clear to auscultation bilaterally, no wheezes, no crackles, no accessory muscle use. HEART: Regular rate and rhythm, S1, S2 without murmur, rub or gallop. ABDOMEN: Obese, soft, nontender, nondistended, normoactive bowel sounds, no guarding, no rebound, no hepatosplenomegaly, no masses. EXTREMITIES: 2+ pulses, warm, well-perfused, no edema. LABS Laboratory Results - last 24 hr 02/11/19 02/11/19 02/11/19 00:14 00:14 00:14 WBC 8.2 RBC 4.52 Hgb 13.8 Hct 40.1 MCV 88.8 MCH 30.6 MCHC 34.4 RDW 13.3 Plt Count 181 MPV 8.9 Absolute Neuts (auto) 4.2 Neutrophils % 51.3 Lymphocytes % 38.3 D Monocytes % 7.6 Eosinophils % 2.3 Basophils % 0.5 Nucleated RBC % 0 PT with INR INR PTT (Actin FS) D-Dimer Sodium 140 Potassium 4.0 Chloride 108 H Carbon Dioxide 29 Anion Gap 4 L BUN 11.0 Creatinine 0.7 Est GFR (CKD-EPI)AfAm 146.77 Est GFR (CKD-EPI)NonAf 126.64 Random Glucose 101 Calcium 9.0 Total Bilirubin 0.4 AST 26 ALT 62 H Alkaline Phosphatase 116 Troponin I < 0.02 B-Natriuretic Peptide 12.9 Total Protein 7.4 Albumin 3.7 02/11/19 02/11/19 00:14 00:14 WBC RBC Hgb Hct MCV MCH MCHC RDW Plt Count MPV Absolute Neuts (auto) Neutrophils % Lymphocytes % Monocytes % Eosinophils % Basophils % Nucleated RBC % PT with INR 12.70 INR 1.08 PTT (Actin FS) 35.8 D-Dimer 690 H Sodium Potassium Chloride Carbon Dioxide Anion Gap BUN Creatinine Est GFR (CKD-EPI)AfAm Est GFR (CKD-EPI)NonAf Random Glucose Calcium Total Bilirubin AST ALT Alkaline Phosphatase Troponin I B-Natriuretic Peptide Total Protein Albumin HOSPITAL COURSE: Date of Admission:02/11/19 Date of Discharge: 02/11/19 Minutes to complete discharge: 30 Discharge Summary Problems reviewed: Yes Reason For Visit: ASPIRATION PNEUMONIA Current Active Problems Hemoptysis, unspecified (Acute) Hospital Course: This is a 28 year old man with a history of PFO who presented to the ED on February 10 complaining of hemoptysis. He reported coughing up sputum and blood throughout the day. He had been taking amoxicillin and Tylenol #3 after having wisdom teeth extracted 5 days earlier. Labs were unremarkable. He was afebrile. Chest x-ray showed atelectasis at the left base. Chest CTA was thought to show LLL consolidation with debris in the bronchi and so he was started on Unasyn for possible aspiration pneumonia. He remained afebrile and had no hemoptysis overnight. The next morning he reported his cough had improved. He was seen by Dr. Christine who recommended treatment with oral antibiotics x 7 days and repeat chest CT in 6-8 weeks. He is being discharged home on February 11. Condition: Improved - Instructions Diet, Activity, Other Instructions: You were evaluated for coughing up blood at the ER at [facility] on February 10. CT scan showed possible pneumonia. You were admitted and started on an antibiotic Unasyn. You were observed overnight, did not have any fevers, and your cough improved. You were seen by a principal statistical scientist (lung specialist) Dr. Christine. You are being discharged on February 11. You are being prescribed an antibiotic Augmentin to take for 7 days to treat pneumonia. The prescription has been sent to [facility]. Please schedule an appointment with your primary care doctor this week. If you do not have one, you may schedule an appointment with Dr. Alas at the [facility]. Please also schedule an appointment with Dr. Christine in 2 weeks. he will arrange to have another CT scan done in about 2 months. If you develop fevers, worse cough, or shortness of breath, or if you start to cough up blood again, please return to the ER. Referrals: Chan Alas MD [Staff Physician] - 1 Week Mg Christine MD, MD [Staff Physician] - 2 Weeks Disposition: HOME - Home Medications Comprehensive Discharge Medication List: Ambulatory Orders Acetaminophen W/ Codeine #3 [Tylenol # 3 -] 1 - 2 tab PO Q6H PRN 02/10/19 Amox-Tr/K Cl [Augmentin - 875Mg Tablet] 1 tab PO BID #14 tablet 02/11/19 This patient is new to me today: Yes Date on this admission: 02/11/19 Emergency Visit: Yes ED Registration Date: 02/11/19 Care time: The patient presented to the Emergency Department on the above date and was hospitalized for further evaluation of their emergent condition. Critical Care patient: No - Discharge Referral Referred to [facility] Med [facility] No
[2019-02-11 12:36] VITALS: BP 122/75; PULSE 87; TEMP 98.1
--- NOTE | 2019-02-11 17:53 | EKG ---
Test Reason : Blood Pressure : / mmHG Vent. Rate : 086 BPM Atrial Rate : 086 BPM P-R Int : 148 ms QRS Dur : 094 ms QT Int : 350 ms P-R-T Axes : 041 030 027 degrees QTc Int : 418 ms NORMAL SINUS RHYTHM NORMAL ECG NO PREVIOUS ECGS AVAILABLE Confirmed by MD Raymond, Poncho ([id number]) on 02/11/2019 5:53:22 PM Referred By: Confirmed By:Poncho Andrade MD
== END 2019-02-11 13:37 | disposition home or self-care (01) | DRG 137 ==
LOC: JER 22:45 → JERBED 02-11 04:36 → J8W 02-11 06:18
PROVIDERS: ADMIT Internal Medicine; ATTEND Internal Medicine
DX: J69.0 Pneumonitis due to inhalation of food and vomit (principal); E66.9 Obesity, unspecified; Z68.34 Body mass index [BMI] 34.0-34.9, adult; J98.11 Atelectasis
CPT/HCPCS: 36415; 71046-TC-FY; 71275-TC; 80053; 83880; 84484; 85025; 85379; 85610; 85730; 87070; 87077; 87205; 93005; 93010; 99284-25